=== PATIENT | female | born 1985 | race Caucasian/White ===

== ENCOUNTER 2019-06-25 20:45 | Emergency (ER) | payer SELFPAY | END 2019-06-25 21:15 | disposition home or self-care (01) | LOC: MADERS 20:45 | DX: H11.31 Conjunctival hemorrhage, right eye (principal) | CPT/HCPCS: 99281 ==

== ENCOUNTER 2021-02-26 11:35 | Outpatient (CLI) | payer OTHER | END 2021-02-26 11:36 | disposition home or self-care (01) | LOC: MADRAD 11:35 | PROVIDERS: ATTEND Registered Nurse | DX: M25.521 Pain in right elbow (principal); Z33.1 Pregnant state, incidental ==

== ENCOUNTER 2021-05-07 09:44 | Outpatient (CLI) | payer OTHER | END 2021-05-07 09:45 | disposition home or self-care (01) | LOC: MADRAD 09:44 | PROVIDERS: ATTEND Registered Nurse | DX: M54.9 Dorsalgia, unspecified (principal); M43.07 Spondylolysis, lumbosacral region | CPT/HCPCS: 72070; 72100 ==

== ENCOUNTER 2023-04-16 22:18 | Emergency (ER) | payer OTHER ==
[2023-04-16 22:37] LABS: #Basophils 0.1 thou/uL (0.0-0.2); #Eosinphils 0.1 thou/uL (0.0-0.7); #Lymphocytes 1.9 thou/uL (1.20-3.40); #Monocytes 0.7 thou/uL (0.11-0.59); #Neutrophils 4.6 thou/uL (1.40-6.50); %Basophils 1.9 % (0.0-1.0); %Eosinophils 1.7 % (0.0-10.0); %Lymphocytes 26.2 % (21.0-51.0); %Monocytes 8.9 % (0.0-10.0); %Neutrophils 61.4 % (42.0-75.0); Hemoglobin 11.1 g/dL (12.0-16.0); Mean Corpuscular HGB CONC 31.5 g/dL (32.0-36.0); Mean Corpuscular Hemoglobin 25.5 pg (27.0-31.0); Mean Platelet Volume 6.9 fL (7.4-10.4); Platelet Count 455 10x3/uL (130-400); RBC Distribution Width 15.3 % (11.5-14.5); Red Blood Cell (RBC) Count 4.36 mill/uL (4.20-5.40); White Blood Cell (WBC) Count 7.4 10x3/uL (4.8-10.8)
[2023-04-16 22:44] LABS: INR-International Normal Ratio 1.1; Prothrombin Time 14.3 sec (12.0-14.7)
[2023-04-16 22:45] LABS: PTT 26.8 sec (22.9-36.1)
[2023-04-16 22:56] LABS: ALT (SGPT) 16 U/L (8-55); AST (SGOT) 24 U/L (5-34); Albumin 3.9 g/dL (3.5-5.0); Alkaline Phosphatase 99 U/L (40-110); Anion Gap 8 mmol/L (10-20); BUN (Urea Nitrogen) 11 mg/dL (7.0-18.7); Bilirubin, Total 0.2 mg/dL (0.2-1.2); CK (CPK) 111 U/L (29-168); Calc. Creatinine Clearance 0 mL/min (70-130); Calcium 8.5 mg/dL (7.8-10.44); Carbon Dioxide 28 mmol/L (22-29); Chloride 104 mmol/L (98-107); Estimated GFR 103; Globulin 2.8 g/dL (2.4-3.5); Glucose 108 mg/dL (70-105); Potassium 3.5 mmol/L (3.5-5.1); Protein, Total 6.7 g/dL (6.0-8.3); Sodium 136 mmol/L (136-145)
[2023-04-16] MEDS ORDERED: Morphine 4 MG/ML VIAL ONE (22:56)
[2023-04-16] MEDS ORDERED: Ondansetron PF 4 MG/2 ML Vial ONE (22:56)
[2023-04-16] MEDS ORDERED: Sodium Chloride 0.9% 1,000 ML ONE (22:56)
[2023-04-17] MEDS ORDERED: Boostrix 0.5 ML (Tdap) VIAL (>/=7 yrs of age) ONE (00:37)
[2023-04-17] MEDS ORDERED: Morphine 4 MG/ML VIAL ONE (00:37)
[2023-04-17 03:50] LABS: #Basophils 0.1 thou/uL (0.0-0.2); #Lymphocytes 0.9 thou/uL (1.20-3.40); #Monocytes 1.3 thou/uL (0.11-0.59); #Neutrophils 14.1 thou/uL (1.40-6.50); %Basophils 0.7 % (0.0-1.0); %Eosinophils 0.2 % (0.0-10.0); %Lymphocytes 5.7 % (21.0-51.0); %Monocytes 7.6 % (0.0-10.0); %Neutrophils 85.9 % (42.0-75.0); Hemoglobin 11.5 g/dL (12.0-16.0); Mean Corpuscular HGB CONC 31.6 g/dL (32.0-36.0); Mean Corpuscular Hemoglobin 25.6 pg (27.0-31.0); Mean Corpuscular Volume 80.9 fl (78.0-98.0); Mean Platelet Volume 7.1 fL (7.4-10.4); Platelet Count 392 10x3/uL (130-400); RBC Distribution Width 15.1 % (11.5-14.5); White Blood Cell (WBC) Count 16.5 10x3/uL (4.8-10.8)
[2023-04-17 03:56] LABS: INR-International Normal Ratio 1.3; Prothrombin Time 16.5 sec (12.0-14.7)
[2023-04-17 03:57] LABS: PTT 28.5 sec (22.9-36.1)
[2023-04-17] MEDS ORDERED: ANTIVENIN,CROTALIDAE (ANAVIP) 1 EACH VIAL ONE (04:18)
[2023-04-17] MEDS ORDERED: Morphine 2 MG/ML VIAL ONE (04:42)
[2023-04-17] MEDS ORDERED: Sodium Chloride 0.9% 500 ML ONE (05:18)
[2023-04-17] MEDS ORDERED: Ondansetron PF 4 MG/2 ML Vial ONE (05:20)
[2023-04-17] MEDS ORDERED: diphenhydrAMINE 50 MG/ML VIAL ONE (05:24)
== END 2023-04-17 05:54 | disposition short-term general hospital (02) ==
LOC: MADERS 22:18
DX: T63.001A Toxic effect of unspecified snake venom, accidental (unintentional), initial encounter (principal)
CPT/HCPCS: 80053; 82550; 85025; 85384; 85610; 85730; 90471; 90715; 96365; 96375; 96376; J0841; J1200; J2270; J2272; J2405; J7030; J7050